=== PATIENT | female | born 1990 | race Caucasian/White ===

== ENCOUNTER 2019-02-13 02:23 | Emergency (ER) | payer OTHER, MEDICAID, SELFPAY ==
[2019-02-13 02:24] VITALS: BP 122/85; PULSE 72; RESP 16; TEMP 36.9; O2SAT 99; BMI 32.8
--- NOTE | 2019-02-13 02:36 | ED.VISSUMM ---
- ER Visit Summary Date of Service: 02/13/19 Chief Complaint: I want an STD check History of Present Illness: The patient is a 28 F who presents for an STD check. She complains of 1 week of vaginal discharge. She complains of mild pelvic cramping. She does have a prior history of STDs. Physical Examination: Afebrile vitals normal Moist mucous membranes Heart regular rate and rhythm Lungs clear Abdomen soft nontender nondistended Alert Test Results: Gonorrhea and Chlamydia pending Emergency Department Course and Treatment: Gonorrhea and Chlamydia were sent. Patient does not wish to wait for the results. We can contact her if they are positive. Treatment Plan: [] Disposition: Discharge Impression: STD screening This note was generated with [employer] dictation software. It may contain incorrect words, spelling, and punctuation that were not noted in review of the chart prior to signing ED Disposition - Plan for ED Patient: Referrals: Care Physician,No Primary [Primary Care Provider] -
--- NOTE | 2019-02-13 03:31 | ED.DEP ---
ED Disposition - Plan for ED Patient: Instructions: If You Think You Have an STD Referrals: Care Physician,No Primary [Primary Care Provider] -
[2019-02-13 03:35] VITALS: BP 120/62; PULSE 70; RESP 18; O2SAT 97
[2019-02-13 04:21] LABS: Chlamydia Trachomatis by PCR Negative (Negative); Neisserai gonorrhoeae by PCR Negative (Negative); Probe Check PASS; Sample Adequacy Control PASS; Specimen Processing Control PASS
== END 2019-02-13 03:35 | disposition home or self-care (01) ==
PROVIDERS: Emergency Provider Emergency Medicine
DX: Z11.3 Encounter for screening for infections with a predominantly sexual mode of transmission (principal); N89.8 Other specified noninflammatory disorders of vagina; Z72.0 Tobacco use
CPT/HCPCS: 87491; 87591; 99282; A4216

== ENCOUNTER 2019-02-15 04:24 | Emergency (ER) | payer MEDICAID, SELFPAY ==
[2019-02-15 04:25] VITALS: BP 117/73; PULSE 111; RESP 20; TEMP 36.9; O2SAT 98; BMI 32.3
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
--- NOTE | 2019-02-15 04:44 | CT_ITS ---
HISTORY: HEAD INJURY,ASSAULTED,LACERATION TO RT SIDE OF HEADETOH TECHNIQUE: Multiple axial images were obtained of the brain without intravenous contrast. A radiation dose optimization technique was used for this scan. COMPARISON: None FINDINGS: # of images incl. paperwork: 228 Mucoperiosteal thickening within the nasal cavity and ethmoid air cells. There is some induration of the fat above the orbits suggestive perhaps of mild contusion. Slightly more cranial than the right orbit, and posterior, there is some skin thickening and a scalp contusion and scalp laceration.. Brain volume is normal. The cerebellar tonsils extend into the foramen magnum but not out of the foramen magnum Jaramillo-white differentiation is preserved. No hydrocephalus. No acute ischemia. No acute intracranial hemorrhage. CT/Brain/Head without Contrast IMPRESSION: Right frontal parietal scalp laceration and contusion. Normal brain without intracranial hemorrhage perceived ASPECT 10. Individualized dose optimization techniques were used for this CT. at 0514 Reported and signed by: Jonel Haque MD Electronically Signed: Jonel Haque MD at 5:13 EDT Tel , Service support ,
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
--- NOTE | 2019-02-15 05:59 | ED.DEP ---
ED Disposition - Plan for ED Patient: Instructions: HEAD INJURY, No Wake-Up (Adult), LACERATION, Face (Suture or Tape), Alcohol Intoxication Referrals: Care Physician,No Primary [Primary Care Provider] -
[2019-02-15 06:12] VITALS: BP 112/71; PULSE 107; RESP 18; O2SAT 97
== END 2019-02-15 06:12 | disposition home or self-care (01) ==
PROVIDERS: Emergency Provider Emergency Medicine
DX: S01.81XA Laceration without foreign body of other part of head, initial encounter (principal); S01.112A Laceration without foreign body of left eyelid and periocular area, initial encounter; X58.XXXA Exposure to other specified factors, initial encounter; Y93.9 Activity, unspecified; Y92.9 Unspecified place or not applicable; Y99.9 Unspecified external cause status; F10.129 Alcohol abuse with intoxication, unspecified; Z79.899 Other long term (current) drug therapy
CPT/HCPCS: 12013; 70450; 99284

== ENCOUNTER 2019-12-29 17:30 | Emergency (ER) | payer SELFPAY ==
[2019-12-29 17:31] VITALS: BP 133/98; PULSE 108; RESP 16; TEMP 37.3; O2SAT 97; BMI 34.0
--- NOTE | 2019-12-29 18:07 | ED.VIS.GEN ---
History of Present Illness Chief Complaint: Abscess Informant: Patient Onset: Weeks - 1 week Context: Gradual Onset Current Severity: Mild Maximum Severity: Mild Narrative: Patient presents with multiple cutaneous abscesses. She first noted 1 on the lateral left hip approximate week ago. She was able to get this to drain. She has one on the left breast that is still indurated with no drainage. There is one just lateral to her left eye that she has been able to get to drain. There is also one on her right labia. Patient denies fever or chills. She states she was taking some old amoxicillin that she had left her previous illness. - Past Medical History (1) GERD (gastroesophageal reflux disease) Status: Chronic (2) Kidney stone Status: Chronic (3) Depression Status: Chronic Past Medical History - Allergies and Home Meds Allergies/Adverse Reactions: Allergies No Known Allergies Allergy (Verified 12/29/19 17:33) Primary Care Physician: Care Physician,No Primary [Primary Care Provider] - Prior records reviewed: Yes Smoking Status: Current every day smoker Review of Systems General: Denies: Chills, Fever Eyes: Denies: Visual changes - bilaterally ENT: Denies: Bilateral ear pain Cardiovascular: Denies: Chest pain Respiratory: Denies: Dyspnea, Cough Gastrointestinal: Denies: Abdominal pain, Nausea, Vomiting, Diarrhea Genitourinary: Denies: Dysuria Skin: Reports: Abscess Neurological: Denies: Headache Hematologic: Denies: Easy bruising, Easy bleeding Allergy: Denies: Uticaria Physical Exam Vital Signs/Narrative: Vital Signs Temp Pulse Resp BP Pulse Ox 12/29/19 17:31 99.1 F 108 H 16 133/98 H 97 Inital Vital Signs reviewed: Yes General: Well nourished, Well developed Head: Normocephalic ENT: Moist mucous membranes Neck: Supple Cardiovascular: Regular rate, Regular rhythm Respiratory: No distress, CTA bilaterally Abdomen: Soft, Nontender Skin: - - Patient has a 2 x 3 cm abscess just lateral to the left eye. She has a 3 cm round superficial abscess to the left anterior breast. There is a drained healing abscess to the lateral left hip. There is a small, 1/2 cm abscess to the right labia. No surrounding cellulitis is noted on these lesions. Neurological: Alert, Oriented x3 Psychological: Normal affect Diagnostic/Tx/Re-eval - Medical Decision Making Patient was given Bactrim, Keflex, and naproxen. Let was applied to the abscess on the left side of her face. 18-gauge needle was able to be used to unroofed the scab that was present. Pus was drained. There is no remaining fluctuance at this time. Patient be treated with a course of Bactrim and Keflex. She was instructed on using warm compresses to the area to continue further drainage. ED Disposition - Plan for ED Patient: Disposition: Home or Assisted Living Diagnosis: Cutaneous abscess Instructions: ED Abscess Incision And Drainage Prescriptions: Smz/Tmp Ds [Bactrim Ds] 1 tab PO BID #20 tab Transmission Status: Pending to [facility] #30 Cephalexin [Keflex] 500 mg PO Q6 #40 cap Transmission Status: Pending to [facility] Referrals: Clint Robles MD [STAFF PHYSICIAN] - As Needed
[2019-12-29] MEDS: Smz/Tmp Ds Tablet 1 TABLET PO (18:10)
[2019-12-29] MEDS: Lidocaine/Epi/Tetracaine 50 ML 1 APPLIC TOPICAL (18:10)
[2019-12-29] MEDS: Cephalexin 250 MG Capsule 500 MG PO (18:10)
[2019-12-29] MEDS: Naproxen 500 MG Tablet PO (18:28)
[2019-12-29 19:36] VITALS: RESP 16
== END 2019-12-29 19:39 | disposition home or self-care (01) ==
LOC: ED 19:21
PROVIDERS: Emergency Provider Emergency Medicine
DX: L02.01 Cutaneous abscess of face (principal); N61.1 Abscess of the breast and nipple; L02.416 Cutaneous abscess of left lower limb; N76.4 Abscess of vulva; K21.9 Gastro-esophageal reflux disease without esophagitis; F32.9 Major depressive disorder, single episode, unspecified; F17.200 Nicotine dependence, unspecified, uncomplicated; Z87.442 Personal history of urinary calculi
CPT/HCPCS: 10060; 99283

== ENCOUNTER 2020-04-07 22:20 | Emergency (ER) | payer SELFPAY ==
[2020-04-07 22:21] VITALS: BP 108/66; PULSE 96; RESP 18; TEMP 35.5; O2SAT 99; BMI 28.3
[2020-04-07 23:56] LABS: Internal QC Validated? YES +Cl - CLEAR BKGD; Pregnancy, Urine Negative Negative
[2020-04-08] MEDS: Azithromycin 250 MG Tablet 1000 MG PO (00:02)
[2020-04-08] MEDS: metroNIDAZOLE 500 MG Tablet 2000 MG PO (00:02)
[2020-04-08] MEDS: Ceftriaxone 500 MG Vial 250 MG IM (00:02)
--- NOTE | 2020-04-08 00:18 | ED.VISSUMM ---
- ER Visit Summary Date of Service: 04/08/20 Chief Complaint: Panic attack History of Present Illness: The patient is a 29 F who goes to the counseling center. Approximately 30 minutes ago she had a panic attack that consisted of chest pain shortness of breath. States that is now resolved. She reports that she is had these multiple times in the past. She is only had them after she stopped using heroin. She reports she has not used heroin since March 31. She was on Vistaril and Zyprexa, but is not needed this for the past 2 years as she had been clean. Patient also reports she has vaginal discharge that began 3 weeks ago. Is a yellow, fishy odor and she is concerned that she may have trichomonas or bacterial vaginitis. She reports that she has bacterial vaginitis frequently. Physical Examination: Vitals: Stable. Afebrile. General: Well-nourished and well-developed. Head: Normocephalic atraumatic. Neck: Supple, no lymphadenopathy. No JVD. Nontender. Cardiovascular: Regular rate and rhythm. No murmurs. Respiratory: No respiratory distress. Clear to auscultation bilaterally. Abdominal: Soft, nontender, nondistended, normal bowel sounds. No guarding, rebound, or peritoneal signs. Back: Nontender. Extremities: Nontender, no edema. Skin: Normal color, no rash. Neurologic: Alert and oriented ?3. Cranial nerves II through XII are intact. Normal strength and sensation. Psych: Normal affect. Test Results: test was negative. Gonorrhea and Chlamydia are pending. Emergency Department Course and Treatment: Patient was treated with Vistaril for her anxiety. She was given Flagyl, Rocephin IM, Zithromax, and Zofran p.o. She is resting comfortably. Treatment Plan: Patient will be discharged with prescriptions for Vistaril, Zyprexa, and Zofran. Instructed to follow-up the counseling center soon as possible. She is for instructed to follow-[facility] with [facility] 3 to 5 days if not improving. Return to the emergency department for any worsening symptoms. Disposition: To home in improved and stable condition. Impression: 1. Anxiety. 2. Vaginal discharge. This note was generated with [employer] software. It may contain incorrect words, spelling, and punctuation that were not noted in review of the chart prior to signing ED Disposition - Plan for ED Patient: Disposition: Home or Assisted Living Instructions: ED Panic Attack Prescriptions: hydrOXYzine pamoate capsule [Vistaril] 50 mg PO TID PRN PRN #30 cap PRN Reason: Anxiety Prescription Printed Olanzapine [Zyprexa] 5 mg PO DAILY #30 tab Prescription Printed Referrals: Cesario Noble MD [STAFF PHYSICIAN] - 3-5 Days if not improving Counseling,Center [GROUP OF PHYSICIANS] - As soon as possible
[2020-04-08] MEDS: hydrOXYzine PAM 25 MG Capsule 50 MG PO (00:25)
[2020-04-08] MEDS: Ondansetron ODT 4 MG Tablet PO (00:27)
[2020-04-08 00:29] VITALS: BP 103/68; PULSE 88; RESP 16; O2SAT 96
[2020-04-08 01:33] LABS: Chlamydia Trachomatis by PCR Negative (Negative); Neisserai gonorrhoeae by PCR Negative (Negative); Probe Check PASS; Sample Adequacy Control PASS; Specimen Processing Control PASS
== END 2020-04-08 00:30 | disposition home or self-care (01) ==
LOC: ED 23:21
PROVIDERS: Emergency Provider Emergency Medicine
DX: F41.9 Anxiety disorder, unspecified (principal); N89.8 Other specified noninflammatory disorders of vagina; Z79.899 Other long term (current) drug therapy
CPT/HCPCS: 81025; 87491; 87591; 96372; 99285

== ENCOUNTER 2020-09-11 07:27 | Observation (INO) | payer SELFPAY ==
[2020-09-11 07:28] VITALS: BP 130/98; PULSE 68; RESP 15; TEMP 36.2; O2SAT 99; BMI 28.3
--- NOTE | 2020-09-11 07:41 | CT_ITS ---
STUDY: CT ABDOMEN AND PELVIS WITHOUT CONTRAST REASON FOR EXAM: Female, 30 years old. KIDNEY STONE, RT FLANK PAIN RADIATION DOSAGE (If Supplied By Facility): CTDIvol = ( 6.91 ) mGy, DLP = ( 310.75 ) mGycm TECHNIQUE: Transaxial images were obtained from the dome of the diaphragm to the symphysis pubis without oral contrast, and without intravenous contrast. Sagittal and coronal images were reconstructed. Individualized dose optimization techniques were used for this CT. COMPARISON: 05/08/2012 FINDINGS: The visualized lung bases are unremarkable. The visualized portions of the heart are within normal limits. Normal liver. There are multiple gallstones. Normal spleen. Normal pancreas. Normal bilateral adrenal glands. Normal right kidney. Normal left kidney. Normal visualized stomach. Normal small intestine. Normal colon. The appendix is visualized and appears normal. Normal abdominal aorta. Normal inferior vena cava. Normal retroperitoneum. Normal urinary bladder. Normal abdominal wall. Normal osseous structures. CT/Abdomen/Pelvis without Cont IMPRESSION: No acute abnormality. No renal or ureteral stone. Cholelithiasis. Electronically Signed: Joshua Valladares MD at 8:53 EST Tel , Service support ,
--- NOTE | 2020-09-11 07:44 | ED.VIS.GEN ---
History of Present Illness Chief Complaint: Flank Pain Informant: Patient Narrative: 30-year-old female presents for the evaluation of acute abdominal pain. Patient states that the symptoms began during the night. She describes it as a right lower abdominal pain rating to her back. She states that she had nausea this morning but thought it was due to her pain. She notes she has had a cough. She notes some diarrhea this morning. Her story changes from I had normal bowel movements now having diarrhea. Her story changes from right lower quadrant to generalized abdominal pain. The information she is providing is not reassuring that I am the being given the full story. She is presenting from assisted. She denies any fever. - Past Medical History (1) Depression Status: Chronic (2) GERD (gastroesophageal reflux disease) Status: Chronic (3) Kidney stone Status: Chronic Past Medical History - Allergies and Home Meds Allergies/Adverse Reactions: Allergies No Known Allergies Allergy (Verified 04/07/20 22:26) Primary Care Physician: Care Physician,No Primary [Primary Care Provider] - Surgical History: - - Left ovarian surgery Lives: - - In assisted Smoking Status: Current every day smoker Alcohol: Occasional Drugs: Heroin Review of Systems General: Denies: Chills, Fever, Sweats Eyes: Denies: Visual changes - bilaterally, Diplopia ENT: Denies: Rhinorrhea, Sore throat Cardiovascular: Denies: Chest pain, Palpitations Respiratory: Reports: Cough. Denies: Dyspnea, Dyspnea on exertion Gastrointestinal: Reports: Abdominal pain, Nausea, Diarrhea. Denies: Vomiting, Melena, Hematochezia Genitourinary: Denies: Dysuria, Hematuria, Frequency Musculoskeletal: Denies: Back pain, Extremity Pain Skin: Denies: Rash, Wounds Neurological: Denies: Headache, Weakness, Numbness Physical Exam Vital Signs/Narrative: Vital Signs Temp Pulse Resp BP Pulse Ox 09/11/20 07:28 97.2 F L 68 15 130/98 H 99 Inital Vital Signs reviewed: Yes General: Well nourished, Well developed, No Acute Distress Head: Normocephalic, Atraumatic Eyes: Perrl, EOMI ENT: Moist mucous membranes, No rhinorrhea Neck: Supple, Nontender Cardiovascular: Regular rate, Regular rhythm, No murmurs Respiratory: No distress, CTA bilaterally, Chest nontender Abdomen: Soft, Nondistended, Normal bowel sounds, Tender - Diffusely tender to palpation out of proportion to the examination. With light touch to the left side of the abdomen the patient arcs her back and rise pain. It is difficult to get an examination with her response., Guarding Back: Nontender, Normal Inspection Extremities: Nontender, No edema Skin: Normal color, No rash Neurological: Alert, Oriented x3, Cranial nerves II-XII grossly intact, Normal Strength, Normal Sensation Psychological: Normal affect, Normal Mood Diagnostic/Tx/Re-eval Laboratory Last Values WBC 8.4 K/mm3 (4.4-11.0) 09/11/20 08:07 RBC 5.28 M/mm3 (4.2-5.4) 09/11/20 08:07 Hgb 14.4 g/dL (12.0-15.0) 09/11/20 08:07 Hct 44.1 % (37-47) 09/11/20 08:07 MCV 83.5 fL (81-99) 09/11/20 08:07 MCH 27.3 pg (27.0-32.0) 09/11/20 08:07 MCHC 32.7 g/dL (32-36) 09/11/20 08:07 RDW Std Deviation 43.2 fl (35.1-43.9) 09/11/20 08:07 RDW Coeff of Kath 14.2 % (11.6-14.6) 09/11/20 08:07 Plt Count 248 K/mm3 (150-450) 09/11/20 08:07 MPV 10.2 fl (6.2-12.0) 09/11/20 08:07 Immature Gran % (Auto) 0.400 % (0.0-0.9) 09/11/20 08:07 Neut % (Auto) 82.5 % (47-70) H 09/11/20 08:07 Lymph % (Auto) 12.0 % (19-41) L 09/11/20 08:07 Lee % (Auto) 4.6 % (0-10) 09/11/20 08:07 Eos % (Auto) 0.1 % (0-5) 09/11/20 08:07 Baso % (Auto) 0.4 % (0-1) 09/11/20 08:07 Absolute Neuts (auto) 6.9 X10^3/uL (2.0-7.7) 09/11/20 08:07 Absolute Lymphs (auto) 1.00 X10^3/uL (0.83-4.51) 09/11/20 08:07 Nucleated RBC % 0 % (0-5) 09/11/20 08:07 Sodium 139 mmol/L (136-145) 09/11/20 08:07 Potassium 4.1 mmol/L (3.5-5.1) 09/11/20 08:07 Chloride 105 mmol/L (98-107) 09/11/20 08:07 Carbon Dioxide 27.0 mmol/L (21.0-32.0) 09/11/20 08:07 Anion Gap 7 (5-15) 09/11/20 08:07 BUN 8 mg/dL (7-18) 09/11/20 08:07 Creatinine 0.76 mg/dL (0.55-1.02) 09/11/20 08:07 Estim Creat Clear Calc 82.42 ml/min 09/11/20 08:07 Est GFR (MDRD) Af Amer 115 mL/min (>60) 09/11/20 08:07 Est GFR (MDRD) Non-Af 95 mL/min (>60) 09/11/20 08:07 BUN/Creatinine Ratio 10.5 RATIO (10-20) 09/11/20 08:07 Glucose 106 mg/dL (74-106) 09/11/20 08:07 Calcium 9.3 mg/dL (8.5-10.1) 09/11/20 08:07 Total Bilirubin 0.90 mg/dL (0.20-1.00) 09/11/20 08:07 Direct Bilirubin 0.45 mg/dL (0.00-0.30) H 09/11/20 08:07 AST 233 U/L (15-37) H 09/11/20 08:07 ALT 177 U/L (13-56) H 09/11/20 08:07 Alkaline Phosphatase 78 U/L (45-117) 09/11/20 08:07 Total Protein 8.4 g/dL (6.4-8.2) H 09/11/20 08:07 Albumin 4.2 g/dL (3.2-5.0) 09/11/20 08:07 Globulin 4.2 g/dL (2.2-4.2) 09/11/20 08:07 Lipase 4693 U/L (73-393) H 09/11/20 08:07 Serum , Qual NEGATIVE Negative 09/11/20 08:07 Urine Color Yellow (Yellow) 09/11/20 07:51 Urine Clarity Clear (Clear) 09/11/20 07:51 Urine pH 7.0 (5.0 - 8.0) 09/11/20 07:51 Ur Specific [place] 1.020 (1.002-1.030) 09/11/20 07:51 Urine Protein 15 mg/dl (Negative) H 09/11/20 07:51 Urine Glucose (UA) Normal mg/dl (Normal) 09/11/20 07:51 Urine Ketones Negative mg/dl (Negative) 09/11/20 07:51 Urine Occult Blood Negative /ul (Negative) 09/11/20 07:51 Urine Nitrite Negative (Negative) 09/11/20 07:51 Urine Bilirubin Negative mg/dL (Negative) 09/11/20 07:51 Urine Urobilinogen 1 mg/dl (Normal) H 09/11/20 07:51 Ur Leukocyte Esterase 25 /ul (Negative) H 09/11/20 07:51 Urine RBC 0 SEEN /hpf (0-5) 09/11/20 07:51 Urine WBC 0-5 SEEN /hpf (0-5) 09/11/20 07:51 Ur Squamous Epith Cells 5-10 SEEN /hpf (5-10) 09/11/20 07:51 Amorphous Sediment 2+ 09/11/20 07:51 Urine Bacteria 0 SEEN /hpf (None Seen) 09/11/20 07:51 Urine Mucus 0 SEEN /hpf (<or=2+) 09/11/20 07:51 Clinical Impression(s) from Imaging Studies Abdomen/Pelvis CT 09/11/20 07:41 IMPRESSION: No acute abnormality. No renal or ureteral stone. Cholelithiasis. Electronically Signed: Joshua Valladares MD at 8:53 EST Tel , Service support , - Medical Decision Making Patient is Covid negative. IV was established and the patient received a dose of Toradol and Zofran. Basic blood work showed slight elevation in the patient's transaminases. Lipase is significantly elevated at just over 4693. A CT of the abdomen pelvis without contrast was obtained because of the patient's reported right lower quadrant abdominal pain with radiation to the back and her history of kidney stones. This did not demonstrated any ureterolithiasis but did note a distended gallbladder with cholelithiasis. I spoke with our on-call surgeon Dr. Cuevas. He will be admitting the patient. The patient has a history of heroin abuse nothing recent. She does not wish any narcotics. ED Disposition - Plan for ED Patient: Disposition: Acute Care [facility] Diagnosis: Acute gallstone pancreatitis, Acute abdominal pain Referrals: Care Physician,No Primary [Primary Care Provider] -
[2020-09-11 07:58] LABS: Bacteria 0 SEEN /hpf (None Seen); Mucous, Urine 0 SEEN /hpf (<or=2+); Red Blood Cells-Urine 0 SEEN /hpf (0-5)
[2020-09-11 08:03] LABS: Glucose, Dipstick Normal (Normal); Ketone-Dipstick Negative (Negative); Leukocyte Esterase-Dipstick 25 /ul (Negative); Nitrite-Dipstick Negative (Negative); Occult Blood-Urine Negative /ul (Negative); Protein-Dipstick 15 mg/dl (Negative); Urine Bilirubin Dipstick Negative (Negative); Urine Urobilinogen 1 mg/dl (Normal)
[2020-09-11 08:08] LABS: Color, Urine Yellow (Yellow); Urine Clarity Clear (Clear)
[2020-09-11] MEDS: Ketorolac 30 MG/ML Syringe IV (08:12)
[2020-09-11] MEDS: Ondansetron 4 MG/2 ML Vial IV ×3 (08:12→20:34)
[2020-09-11 08:16] LABS: Absolute Neutrophil Count 6.9 X10^3/uL (2.0-7.7); Basophil# 0.03 X10^3/uL; Basophil% 0.4 % (0-1); Eosinophil# 0.01 X10^3/uL; Eosinophils% 0.1 % (0-5); Hematocrit 44.1 % (37-47); Hemoglobin 14.4 g/dL (12.0-15.0); Mean Corp Hgb Conc 32.7 g/dL (32-36); Mean Corpuscular Hgb 27.3 pg (27.0-32.0); Mean Corpuscular Volume 83.5 fL (81-99); Mean Platelet Vol. 10.2 fl (6.2-12.0); Monocyte# 0.38 X10^3/uL; Monocyte% 4.6 % (0-10); NRBC Flagged by Analyzer 0 % (0-5); Neutrophil % 82.5 % (47-70); Platelet Count 248 K/mm3 (150-450); RBC Distribution Width CV 14.2 % (11.6-14.6); RBC Distribution Width SD 43.2 fl (35.1-43.9); Red Blood Count 5.28 M/mm3 (4.2-5.4); White Blood Count 8.4 K/mm3 (4.4-11.0)
[2020-09-11 08:25] LABS: Internal QC Validated? YES +Cl - CLEAR BKGD; Pregnancy, Serum, hCG Quali. NEGATIVE Negative
[2020-09-11 08:28] LABS: Amorphous Sediment 2+; Squamous Epithelial Cells - UA 5-10 SEEN /hpf (5-10); White Blood Cells 0-5 SEEN /hpf (0-5)
[2020-09-11 08:36] LABS: AST(SGOT) 233 U/L (15-37); Alanine Aminotransfer ALT/SGPT 177 U/L (13-56); Albumin, Serum 4.2 g/dL (3.2-5.0); Alkaline Phosphatase 78 U/L (45-117); Anion Gap 7 (5-15); BUN 8 mg/dL (7-18); BUN/Creat Ratio 10.5 RATIO (10-20); Bilirubin, Direct 0.45 mg/dL (0.00-0.30); Calcium,Total 9.3 mg/dL (8.5-10.1); Chloride 105 mmol/L (98-107); Creatinine, Serum 0.76 mg/dL (0.55-1.02); EST Glomerular Filtration Rate 95 mL/min (>60); Est Glom Filt Rate - Afr Amer 115 mL/min (>60); Estimated Creatinine Clearance 82.42 ml/min; Globulin 4.2 g/dL (2.2-4.2); Glucose 106 mg/dL (74-106); Lipase 4693 U/L (73-393); Potassium 4.1 mmol/L (3.5-5.1); Protein, Total 8.4 g/dL (6.4-8.2); Sodium Level 139 mmol/L (136-145)
[2020-09-11] MEDS: 0.9% Normal Saline 1,000 ML 999 ML IV (09:17)
[2020-09-11 09:46] VITALS: BP 133/79; PULSE 83; RESP 16; TEMP 36.8; O2SAT 99
[2020-09-11 09:55] VITALS: BMI 28.7
[2020-09-11 09:56] VITALS: BP 106/69; PULSE 74; RESP 16; TEMP 37.7; O2SAT 100
--- NOTE | 2020-09-11 10:03 | HP.PCM_ITS ---
Problem List (1) Acute gallstone pancreatitis Status: Acute History of Present Illness Date of Admission: 09/11/20 Chief Complaint: Abdominal pain The patient is a 30 year old F with a history of hepatitis C presented with abdominal pain and nausea and vomiting. She does not have any fevers or chills and this is never happened to her before. She is having abdominal pain that radiates to the back. She says it started in her lower abdomen now is in her upper abdomen. She is also having some diarrhea. Past Medical History Past Medical History (Chronic Problems): Chronic Problems GERD (gastroesophageal reflux disease) (Chronic) Kidney stone (Chronic) Depression (Chronic) Medical History: Medical History (Last Updated 09/11/20 @ 10:[address] Michael Cuevas MD) Hepatitis C B19.20 Allergies No Known Allergies Allergy (Verified 09/11/20 09:20) Home Medications: Ambulatory Orders Medication Instructions Recorded NK 09/11/20 Surgical History: - - Left ovarian surgery Lives: - - In retirement Smoking Status: Current every day smoker Alcohol: Occasional Drugs: Heroin - *Family History Maternal History Items: No pertinent history Review of Systems Constitutional: Denies: Anorexia, Fever HEENT: Denies: Difficulty Swallowing Cardiovascular: Denies: Chest Pain Respiratory: Denies: Cough, Shortness of Breath, Shortness of breath at rest Gastrointestinal: Reports: Abdominal Pain, Nausea, Vomiting Genitourinary: Denies: Dysuria Musculoskeletal: Denies: Muscle pain Skin: Denies: Jaundice Neurological: Denies: Balance problems Hematologic/ Lymphatic: Denies: Anemia VTE Information - Inpt Only VTE Present on Admission: No VTE Mechan Device Prophylaxis: SCD's Patient Problems: Active and Suspected Problems Acute gallstone pancreatitis (Acute) Acute abdominal pain (Acute) - Physical Exam Vitals/I&O's: Vital Signs Temp Pulse Resp BP Pulse Ox 99.9 F H 74 16 106/69 100 09/11/20 09:56 09/11/20 09:56 09/11/20 09:56 09/11/20 09:56 09/11/20 09:56 Oxygen Delivery Method Room Air Weight: 152 lb Body Mass Index (BMI) 28.7 Intake and Output for Last 24 Hours 09/09/20 09/10/20 09/11/20 23:59 23:59 23:59 Intake Total 632.7 / 632.7 Balance 632.7 / 632.7 General: Alert, Oriented x3 Neck: No JVD Lungs: Normal air movement Cardiovascular: Regular rate, Regular Rhythm Abdomen: Soft, Non-Distended, Tender - Diffusely with no rebound or guarding Extremities: No clubbing Skin: No rashes Musculoskeletal: No Muscle Wasting Lymphatic: No Cervical, Supraclavicular, or Inguinal Adenopathy Neurological: Cranial nerves II-XII grossly intact Psych/Mental Status: Normal Affect Microbiology Past 72 Hours 09/11/20 07:45 Mucosa - Nose SARS-CoV-2 Antigen (Rapid) - Final Laboratory Results 09/11/20 07:51: Urine Color Yellow, Urine Clarity Clear, Urine pH 7.0, Ur Specific [place] 1.020, Urine Protein 15 H, Urine Glucose (UA) Normal, Urine Ketones Negative, Urine Occult Blood Negative, Urine Nitrite Negative, Urine Bilirubin Negative, Urine Urobilinogen 1 H, Ur Leukocyte Esterase 25 H, Urine RBC 0 SEEN, Urine WBC 0-5 SEEN, Ur Squamous Epith Cells 5-10 SEEN, Amorphous Sediment 2+, Urine Bacteria 0 SEEN, Urine Mucus 0 SEEN 09/11/20 08:07: WBC 8.4, RBC 5.28, Hgb 14.4, Hct 44.1, MCV 83.5, MCH 27.3, MCHC 32.7, RDW Std Deviation 43.2, RDW Coeff of Kath 14.2, Plt Count 248, MPV 10.2, Immature Gran % (Auto) 0.400, Neut % (Auto) 82.5 H, Lymph % (Auto) 12.0 L, [place] % (Auto) 4.6, Eos % (Auto) 0.1, Baso % (Auto) 0.4, Absolute Neuts (auto) 6.9, Absolute Lymphs (auto) 1.00, Nucleated RBC % 0 09/11/20 08:07: Sodium 139, Potassium 4.1, Chloride 105, Carbon Dioxide 27.0, Anion Gap 7, BUN 8, Creatinine 0.76, Estim Creat Clear Calc 82.42, Est GFR (MDRD) Af Amer 115, Est GFR (MDRD) Non-Af 95, BUN/Creatinine Ratio 10.5, Glucose 106, Calcium 9.3, Total Bilirubin 0.90, Direct Bilirubin 0.45 H, AST 233 H, ALT 177 H, Alkaline Phosphatase 78, Total Protein 8.4 H, Albumin 4.2, Globulin 4.2, Lipase 4693 H 09/11/20 08:07: Serum , Qual NEGATIVE Clinical Impression(s) from Imaging Studies Abdomen/Pelvis CT 09/11/20 07:41 IMPRESSION: No acute abnormality. No renal or ureteral stone. Cholelithiasis. Electronically Signed: Joshua Valladares MD at 8:53 EST Tel , Service support , Current Medications Acetaminophen (Acetaminophen 325 Mg Tablet) 650 mg PO Q4H PRN PRN PRN Reason: Pain 1-10 or Fever Hydromorphone HCl (Hydromorphone 1 Mg/Ml Syringe) 1 mg IV Q2H PRN PRN PRN Reason: Pain Score 4-10 Sodium Chloride () 1,000 mls @ 999 mls/hr IV .Q1H1M ONE Stop: 09/11/20 10:12 Last Infusion: 09/11/20 09:55 Dose: Infused Documented by: Sodium Chloride () 1,000 mls @ 125 mls/hr IV .Q8H MARCELLO Sodium Chloride () 250 mls @ 15 mls/hr IV .[id number] PRN PRN Reason: Saline Flush Ketorolac Tromethamine (Ketorolac 15 Mg/Ml Vial) 15 mg IV Q8H PRN PRN PRN Reason: Pain Score 4-10 Stop: 09/13/20 09:16 Ondansetron HCl (Ondansetron 4 Mg/2 Ml Vial) 4 mg IV Q6H PRN PRN PRN Reason: NAUSEA Sodium Chloride (0.9% Saline Lock 10 Ml Syringe) 10 - 40 ml IV UD PRN PRN Reason: SALINE FLUSH Assessment/Plan All Active Problems Acute gallstone pancreatitis (Acute) Acute abdominal pain (Acute) Nausea and vomiting in (Acute) 30-year-old female with gallstone pancreatitis 1. Patient has CT scan which showed cholelithiasis and she has an elevated lipase as well as elevated LFTs. This is consistent with her pain in her upper abdominal area that radiates to the back as gallstone pancreatitis. 2. I have admitted the patient and I will start her on IV fluids and keep her n .p.o. I will recheck LFTs in the morning and decide about course of treatment. If her LFTs continue to trend upward I would recommend ERCP tomorrow. If her LFT's and lipase are decreasing and she is feeling better I will perform a laparoscopic cholecystectomy to prevent this from happening again in the future. I discussed both treatment options with her and she is in agreement with the treatment plan. I will perform cholangiograms during the procedure. Michael Cuevas MD Pager: [facility] [address] [place] [address] [address] [place] [address] Office:
[2020-09-11 11:15] VITALS: PULSE 100
[2020-09-11] MEDS: 0.9% Normal Saline 1,000 ML 125 ML IV ×2 (11:15→19:25)
[2020-09-11] MEDS: HYDROmorphone 1 MG/ML Syringe IV ×3 (11:18→20:35)
[2020-09-11] MEDS: 0.9% Saline Lock 10 ML Syringe IV ×3 (11:18→19:25)
[2020-09-11] MEDS: Ketorolac 15 MG/ML Vial IV (16:20)
[2020-09-11 16:25] VITALS: BP 119/76; PULSE 60; RESP 16; TEMP 37.2; O2SAT 97
--- NOTE | 2020-09-11 17:11 | PCS.PANDOC ---
PANDEMIC DOCUMENTATION INITIATED: Date: 09/11/2020 Time: 50
[2020-09-11 20:16] VITALS: BP 104/68; PULSE 76; RESP 16; TEMP 36.6; O2SAT 99
[2020-09-12] VITALS (12 sets, daily range): BP systolic 96–131; BP diastolic 57–89; PULSE 64–101; RESP 15–18; TEMP 36.6–37.1; O2SAT 96–100; BMI 28.7
--- NOTE | 2020-09-12 | GALL_PTH ---
PATIENT: ROSEMARY LANDAVERDE LOC: MS3 U#:[id number] AGE/SX: 30/F ROOM: MS311 RE09/11/[address]: Dr. Michael Cuevas MD : 1990 BED: 1 DIS: 09/13/2020 SPEC #: [id number] RECD: 09/13/20 07:28 STATUS: SERGIO ROSEMARY #: [id number] YUMIKO: 09/12/20 00:[address]: Michael Cuevas DEPT: SURGICAL PATHOLOGY RECD BY: Ken Vee ENTERED: 09/13/20 07:52 SP TYPE: LYDIA CHIANG DR: No Primary Care Phys Tissues: Gallbladder, NOS Procedures: Surgery Specimen Level III HEADER OPERATION: Laparoscopic cholecystectomy with IOC PRE-OP DIAGNOSIS: Acute gallstone pancreatitis, acute abdominal pain TISSUE SUBMITTED: Gallbladder MICROSCOPIC DIAGNOSIS Gallbladder, cholecystectomy: Chronic cholecystitis and cholelithiasis. Benign pericystic lymph node. AM:kan 09/14/2020 MICROSCOPIC DESCRIPTION Slides are reviewed. GROSS DESCRIPTION Received is one container labeled with the patient's name and designated gallbladder. The specimen consists of a gallbladder measuring 9 cm in length and 3.5 cm in diameter. The external surface is pink-pineda, smooth and glistening for the most part. Focally it is granular, hemorrhagic and contains cautery artifact. The gallbladder contains green-yellow mucoid bile and multiple, mulberry, pineda-light yellow to green stones and stone fragments measuring in aggregate 3 x 2 x 0.5 cm and 0.1 to 0.3 cm in greatest dimension. The mucosa is bile-stained and without any mass lesions. The gallbladder wall measures up to 0.3 cm in thickness. [employer] Tech sections from the gallbladder and the cystic duct are submitted in one cassette. / SJ:kan 09/13/20 TC:3 CPT: 02744
[2020-09-12 00:31] LABS: Amphetamine Urine VISTA NEGATIVE (<1000 ng/mL); Barbiturate Urine VISTA NEGATIVE (< 200 ng/mL); Benzodiazepine Urine VISTA NEGATIVE (< 200 ng/mL); Cocaine Urine VISTA NEGATIVE (< 300 ng/mL); Ecstacy Urine VISTA NEGATIVE (< 500 ng/mL); Methadone Urine VISTA NEGATIVE (< 300 ng/mL); PCP Urine VISTA NEGATIVE (< 25 ng/mL); THC Urine VISTA NEGATIVE (< 50 ng/mL); Vista UDS pH Range 6
[2020-09-12] MEDS: Ketorolac 15 MG/ML Vial IV ×3 (00:54→21:34)
[2020-09-12] MEDS: HYDROmorphone 1 MG/ML Syringe IV ×5 (02:40→17:41)
[2020-09-12] MEDS: Ondansetron 4 MG/2 ML Vial IV ×2 (02:40→08:57)
--- NOTE | 2020-09-12 05:00 | EKG12_ITS ---
Test Reason : PRE-OP Blood Pressure : / mmHG Vent. Rate : 071 BPM Atrial Rate : 071 BPM P-R Int : 158 ms QRS Dur : 088 ms QT Int : 414 ms P-R-T Axes : 061 047 053 degrees QTc Int : 449 ms Normal sinus rhythm with sinus arrhythmia Nonspecific T wave abnormality Abnormal ECG When compared with ECG of 20-AUG-2011 20:04, Nonspecific T wave abnormality now evident in Lateral leads Confirmed by IRAM PEREZ, LUIS MANUEL ([id number]), editor managing director RAISA WEINSTEIN ([id number]) on 09/14/2020 11:23:16 AM Referred By: DR BORGES Confirmed By:LUIS MANUEL WALDEN MD
[2020-09-12 05:15] LABS: Absolute Lymphocyte Count 1.93 X10^3/uL (0.83-4.51); Absolute Neutrophil Count 2.7 X10^3/uL (2.0-7.7); Basophil# 0.03 X10^3/uL; Basophil% 0.6 % (0-1); Eosinophil# 0.04 X10^3/uL; Eosinophils% 0.8 % (0-5); Hematocrit 34.3 % (37-47); Hemoglobin 10.9 g/dL (12.0-15.0); Lymphocyte # 1.93 X10^3/ul (4.0); Lymphocyte % 38.9 % (19-41); Mean Corp Hgb Conc 31.8 g/dL (32-36); Mean Corpuscular Hgb 26.9 pg (27.0-32.0); Mean Corpuscular Volume 84.7 fL (81-99); Mean Platelet Vol. 10.6 fl (6.2-12.0); NRBC Flagged by Analyzer 0 % (0-5); Neutrophil # 2.65 X10^3/uL (2.7-7.7); Neutrophil % 53.5 % (47-70); Platelet Count 167 K/mm3 (150-450); RBC Distribution Width CV 14.5 % (11.6-14.6); RBC Distribution Width SD 44.8 fl (35.1-43.9); Red Blood Count 4.05 M/mm3 (4.2-5.4)
[2020-09-12 05:38] LABS: ALB/GLOB Ratio 0.9 RATIO (0.9-2.4); AST(SGOT) 157 U/L (15-37); Alanine Aminotransfer ALT/SGPT 235 U/L (13-56); Albumin, Serum 3.1 g/dL (3.2-5.0); Alkaline Phosphatase 65 U/L (45-117); Anion Gap 7 (5-15); BUN 11 mg/dL (7-18); Chloride 109 mmol/L (98-107); Creatinine, Serum 0.69 mg/dL (0.55-1.02); EST Glomerular Filtration Rate 107 mL/min (>60); Est Glom Filt Rate - Afr Amer 129 mL/min (>60); Estimated Creatinine Clearance 90.78 ml/min; Globulin 3.3 g/dL (2.2-4.2); Glucose 72 mg/dL (74-106); Lipase 439 U/L (73-393); Potassium 3.4 mmol/L (3.5-5.1); Protein, Total 6.4 g/dL (6.4-8.2); Sodium Level 139 mmol/L (136-145)
[2020-09-12] MEDS: 0.9% Normal Saline 1,000 ML 125 ML IV ×2 (07:17→17:45)
[2020-09-12] MEDS: Potassium Chloride 10mEq/100mL 10 MEQ/100 ML IV.SOLN. 100 MEQ IV BOLUS ×4 (08:46→12:50)
--- NOTE | 2020-09-12 08:54 | PCM.PN.SRG ---
Patient Problems: Active and Suspected Problems (Last Updated 09/11/20 @ 10:[address] Michael Cuevas MD) Acute gallstone pancreatitis (Acute) Acute abdominal pain (Acute) Subjective: Patient had improvement of pain overnight. No nausea or vomiting overnight. - Physical Exam Vitals/I&O's: Vital Signs Temp Pulse Resp BP Pulse Ox 98.7 F 75 16 96/58 L 99 09/12/20 08:51 09/12/20 08:51 09/12/20 08:51 09/12/20 08:51 09/12/20 08:51 Oxygen Delivery Method Room Air Weight: 152 lb Body Mass Index (BMI) 28.7 Intake and Output for Last 24 Hours 09/10/20 09/11/20 09/12/20 23:59 23:59 23:59 Intake Total 2141.03 / 2141.03 1000 / 1000 Output Total 350 / 350 Balance 1791.03 / 1791.03 1000 / 1000 General: Alert, Oriented x3 Neck: No JVD Lungs: Normal air movement Cardiovascular: Regular rate, Regular Rhythm Abdomen: Soft, Non-Distended, Tender - Mild epigastric tenderness Microbiology Past 72 Hours 09/11/20 07:45 Mucosa - Nose SARS-CoV-2 Antigen (Rapid) - Final Laboratory Results 09/11/20 07:51: Urine Opiates Screen NEGATIVE, Urine Methadone Screen NEGATIVE, Ur Barbiturates Screen NEGATIVE, Ur Phencyclidine Scrn NEGATIVE, Ur Amphetamines Screen NEGATIVE, U Methamphetamin-MDMA NEGATIVE, U Benzodiazepines Scrn NEGATIVE, Urine Cocaine Screen NEGATIVE, U Cannabinoids Screen NEGATIVE, Ur Drug Screen Comment 09/12/20 04:45: WBC 5.0, RBC 4.05 L, Hgb 10.9 L, Hct 34.3 L, MCV 84.7, MCH 26.9 L, MCHC 31.8 L, RDW Std Deviation 44.8 H, RDW Coeff of Kath 14.5, Plt Count 167, MPV 10.6, Immature Gran % (Auto) 0.200, Neut % (Auto) 53.5, Lymph % (Auto) 38.9, [place] % (Auto) 6.0, Eos % (Auto) 0.8, Baso % (Auto) 0.6, Absolute Neuts (auto) 2.7, Absolute Lymphs (auto) 1.93, Nucleated RBC % 0 09/12/20 04:45: Sodium 139, Potassium 3.4 L, Chloride 109 H, Carbon Dioxide 23.0, Anion Gap 7, BUN 11, Creatinine 0.69, Estim Creat Clear Calc 90.78, Est GFR (MDRD) Af Amer 129, Est GFR (MDRD) Non-Af 107, BUN/Creatinine Ratio 16.0, Glucose 72 L, Calcium 8.0 L, Total Bilirubin 0.60, AST 157 H, ALT 235 H, Alkaline Phosphatase 65, Total Protein 6.4, Albumin 3.1 L, Globulin 3.3, Albumin/Globulin Ratio 0.9, Lipase 439 H Current Medications Acetaminophen (Acetaminophen 325 Mg Tablet) 650 mg PO Q4H PRN PRN PRN Reason: Pain 1-10 or Fever Hydromorphone HCl (Hydromorphone 1 Mg/Ml Syringe) 1 mg IV Q2H PRN PRN PRN Reason: Pain Score 4-10 Last Admin: 09/12/20 07:33 Dose: 1 mg Documented by: Sodium Chloride () 1,000 mls @ 125 mls/hr IV .Q8H MARCELLO Last Admin: 09/12/20 07:17 Dose: 125 mls/hr Documented by: Sodium Chloride () 250 mls @ 15 mls/hr IV .[id number] PRN PRN Reason: Saline Flush Potassium Chloride () 10 meq in 100 mls @ 100 mls/hr IV BOLUS Q1H MARCELLO Stop: 09/12/20 10:44 Last Admin: 09/12/20 08:46 Dose: 100 mls/hr Documented by: Ketorolac Tromethamine (Ketorolac 15 Mg/Ml Vial) 15 mg IV Q8H PRN PRN PRN Reason: Pain Score 4-10 Stop: 09/13/20 09:16 Last Admin: 09/12/20 00:54 Dose: 15 mg Documented by: Ondansetron HCl (Ondansetron 4 Mg/2 Ml Vial) 4 mg IV Q6H PRN PRN PRN Reason: NAUSEA Last Admin: 09/12/20 02:40 Dose: 4 mg Documented by: Sodium Chloride (0.9% Saline Lock 10 Ml Syringe) 10 - 40 ml IV UD PRN PRN Reason: SALINE FLUSH Last Admin: 09/11/20 19:25 Dose: 20 ml Documented by: Medical Necessity - Tobacco Use Smoking Status: Current every day smoker Tobacco Use: Cigarettes Assessment/Plan All Active Problems (Last Updated 09/11/20 @ 10:[address] Michael Cuevas MD) Nausea and vomiting in (Acute) Acute gallstone pancreatitis (Acute) Acute abdominal pain (Acute) 30-year-old female with gallstone pancreatitis 1. The patient's liver enzymes did show improvement overnight. I will plan for laparoscopic cholecystectomy with cholangiogram today. Her pancreatitis seems to be resolving as her pain is improved and her lipase is decreased. I discussed this with her and she is in agreement with the treatment plan. 2. I discussed the procedure in detail with the patient. I discussed the risks, benefits, and alternatives of the procedure. I discussed the risks including but not limited to bleeding, infection, injury to surrounding organs such as the liver, bile duct, bowels. I did discuss the possibility of having to convert to an open procedure as well as the possibility that if any injuries occurred this may necessitate further surgery at a tertiary care center. Michael Cuevas MD Pager: [facility] [address] [place] [address], [address] [place] [address] Office:
[2020-09-12] MEDS: 0.9% Saline Lock 10 ML Syringe IV ×5 (08:57→21:34)
--- NOTE | 2020-09-12 10:46 | CASEMGMT ---
Addendum entered by Laurie Cee 09/12/20 11:57: SW was provided HCAP application and Medicaid Application. SW sent HCAP application to [employer], SW faxed Medicaid Application to [employer]. SW provided pt with original Medicaid Application. Original Note: Social Work Note Pt is listed as self-pay. SW in to speak with pt. SW introduced self and role at [facility]. Pt is alert and orientated x3. Pt confirms she currently has no insurance. Pt states she used to have [employer] insurance but it was over a year ago and she got a job and then made too much for Medicaid. SW provided pt with Self-pay resources including HCAP application, Medicaid Application, [facility] information, [employer], [employer] [facility], and RX assistance programs. Pt thanked this worker, denied additional needs or concerns at this time. Laurie Cee HEARING CARE PRACTITIONER, ADOBE CQ DEVELOPER
--- NOTE | 2020-09-12 14:40 | RAD_ITS ---
STUDY: INTRAOPERATIVE CHOLANGIOGRAM. REASON FOR EXAM: Female, 30 years old. lap teresita with IOC, 9 images FLUOROSCOPY TIME (if supplied): ( 150 seconds ) minutes/seconds TECHNIQUE: An intraoperative carotid was performed by the surgeon. Imaging was submitted. COMPARISON: None. FINDINGS: Mild dilatation of the common bile duct. There is free flow of contrast into the duodenum. RAD/Cholangiogram/ O R,Initial IMPRESSION: Mildly dilated common bile duct. Electronically Signed: Magdaleno Rowe MD at 15:54 EST , Service support ,
[2020-09-12] MEDS: Cefotetan 2 GM in 0.9% NS 100 ML IV (14:48)
[2020-09-12] MEDS: Lactated Ringers 1,000 ML 100 ML IV (15:15)
[2020-09-12] MEDS: Bupiv/Epi 0.25% 30 ML Vial (15:43)
--- NOTE | 2020-09-12 16:05 | OP.PCM_ITS ---
Problem List (1) Acute gallstone pancreatitis Status: Acute Report of Operation Date of Procedure: 09/12/20 Pre-Operative Diagnosis: Gallstone pancreatitis Post-Operative Diagnosis: Gallstone pancreatitis. Choledocholithiasis Surgery/Procedure Performed:: Laparoscopic cholecystectomy with cholangiogram Specimen's removed: Gallbladder and contents Description of Procedure: After obtaining informed consent patient was brought back to the operating room. General anesthesia was induced. The abdomen was prepped and draped in usual sterile fashion. A small midline incision was made superior to the umbilicus and deepened to the level of fascia. The fascia was elevated and incised. Next the peritoneum was elevated and incised in the same fashion. Finger sweep was performed and the [place] trocar was placed into the abdomen. The balloon was inflated. The abdomen was inflated to 15 mmHg. Next a camera was introduced into the abdomen and the abdomen was inspected. Next under direct visualization three 5-mm ports were placed one subxiphoid and 2 subcostal. Next the gallbladder was elevated and retracted toward the right shoulder. The peritoneum was stripped from the gallbladder. The infundibulum was located and retracted laterally. Next the triangle of Calot was dissected and the cystic duct and cystic artery were identified. Cholangiograms were performed. The Shaw clamp was used to clamp across the infundibulum and the catheter needle was inserted into the gallbladder. Under fluoroscopy contrast was instilled into the gallbladder and the common duct, cystic duct as well as proximal hepatic ducts were identified. There was good filling of the duodenum. There were filling defects noted in the common bile duct. Glucagon was administered and after forceful flushing the leading filling defect was flushed into the small bowel but there were 2 other small defects that were not able to be flushed. There was good flow into the duodenum after flushing the first stone through. I am unable to guarantee that the distal common bile duct does not have any further filling defects. The clamp was removed as well as the needle and the infundibulum was grasped once more. Three hemolock clips were placed across the cystic duct. The cystic duct was then divided leaving 2 clips on the stump. The cystic artery was clipped and divided in the same fashion. The hook cautery was then used to take the gallbladder off of the gallbladder bed. Hemostasis was obtained. Gallbladder fossa was irrigated and no active bleeding or bile leakage was noted. Next the camera was introduced in the subxiphoid port. An Endopouch bag was placed through the umbilical port and the gallbladder was placed into it. The gallbladder was then removed through the umbilical incision. The camera was then reinserted through the umbilical port. The gallbladder fossa was inspected once more and noted to be hemostatic with no leaking bile. The abdomen was suctioned dry. The 5 mm ports were removed under direct visualization. The umbilical port was then removed and the air was removed from the abdomen. Next using an 0 Vicryl suture the umbilical fascia was closed in a [id number] fashion. The umbilical port site was irrigated local anesthetic was administered to all the incisions. All the incisions were closed with interrupted subcuticular 4-0 Monocryl sutures followed by Steri- Strips and dressings. The patient was awoken and taken to PACU in stable condition. Plan for ERCP tomorrow. - Admit VTE Documentation VTE Mechan Device Prophylaxis: SCD's
--- NOTE | 2020-09-12 16:07 | PCM.PN.BLA ---
Progress Note The patient had a stone in the distal common bile duct which was flushed through there were 2 other filling defects that appeared in the distal common bile duct they were unable to be cleared. I recommend ERCP tomorrow. I will start her on clears tonight and n.p.o. after 9 AM for ERCP tomorrow. STROKE Vital Signs/Narrative: Vital Signs Temp Pulse Resp BP Pulse Ox 09/12/20 12:15 98.0 F 77 16 112/57 L 96
--- NOTE | 2020-09-12 17:36 | NURSING ---
pt arrived to unit, vs checked, requesting pain medication while on phone. abd checked, rlq drsg and mid umbilical drsg marked- aware these 2 were changed in pacu as were saturated per vivian REGISTERED PRIVATE DUTY NURSE, other 2 dressings already marked- no increase noted. pt eating jello, explained diet order and denies further needs except to know when or tomorrow is. pt on phone with mom with raised voice about ecigarette, explained to patient policy including ecigarrette, informed of planned surgery time as on schedule. pt denies all further needs. call light within reach.
[2020-09-12] MEDS: oxyCODONE 5 MG Tablet PO ×2 (18:03→22:08)
[2020-09-13] VITALS (9 sets, daily range): BP systolic 106–126; BP diastolic 57–88; PULSE 70–95; RESP 16–18; TEMP 36.7–37.6; O2SAT 97–100
[2020-09-13] MEDS: 0.9% Normal Saline 1,000 ML 125 ML IV ×2 (00:18→08:25)
[2020-09-13] MEDS: 0.9% Saline Lock 10 ML Syringe IV ×5 (00:19→11:57)
[2020-09-13] MEDS: HYDROmorphone 1 MG/ML Syringe IV ×4 (00:19→11:56)
[2020-09-13] MEDS: oxyCODONE 5 MG Tablet PO (04:23)
[2020-09-13 05:51] LABS: Absolute Lymphocyte Count 0.92 X10^3/uL (0.83-4.51); Absolute Neutrophil Count 4.9 X10^3/uL (2.0-7.7); Basophil# 0.01 X10^3/uL; Basophil% 0.2 % (0-1); Hematocrit 34.8 % (37-47); Hemoglobin 11.2 g/dL (12.0-15.0); Lymphocyte # 0.92 X10^3/ul (4.0); Lymphocyte % 14.8 % (19-41); Mean Corp Hgb Conc 32.2 g/dL (32-36); Mean Corpuscular Hgb 26.9 pg (27.0-32.0); Mean Corpuscular Volume 83.7 fL (81-99); Mean Platelet Vol. 10.4 fl (6.2-12.0); Monocyte# 0.41 X10^3/uL; Monocyte% 6.6 % (0-10); NRBC Flagged by Analyzer 0 % (0-5); Neutrophil # 4.85 X10^3/uL (2.7-7.7); Neutrophil % 78.2 % (47-70); Platelet Count 190 K/mm3 (150-450); RBC Distribution Width CV 14.4 % (11.6-14.6); RBC Distribution Width SD 44.2 fl (35.1-43.9); Red Blood Count 4.16 M/mm3 (4.2-5.4); White Blood Count 6.2 K/mm3 (4.4-11.0)
[2020-09-13 06:21] LABS: ALB/GLOB Ratio 1.1 RATIO (0.9-2.4); AST(SGOT) 516 U/L (15-37); Alanine Aminotransfer ALT/SGPT 559 U/L (13-56); Albumin, Serum 3.4 g/dL (3.2-5.0); Alkaline Phosphatase 97 U/L (45-117); Anion Gap 5 (5-15); BUN 4 mg/dL (7-18); BUN/Creat Ratio 5.2 RATIO (10-20); Calcium,Total 8.3 mg/dL (8.5-10.1); Chloride 109 mmol/L (98-107); Creatinine, Serum 0.77 mg/dL (0.55-1.02); EST Glomerular Filtration Rate 94 mL/min (>60); Est Glom Filt Rate - Afr Amer 114 mL/min (>60); Estimated Creatinine Clearance 81.35 ml/min; Globulin 3.1 g/dL (2.2-4.2); Glucose 117 mg/dL (74-106); Potassium 4.1 mmol/L (3.5-5.1); Protein, Total 6.5 g/dL (6.4-8.2); Sodium Level 140 mmol/L (136-145)
--- NOTE | 2020-09-13 07:13 | PN.SURG_ITS ---
Patient Problems: Active and Suspected Problems (Last Updated 09/11/20 @ 10:[address] Michael Cuevas MD) Acute gallstone pancreatitis (Acute) Acute abdominal pain (Acute) Subjective: Patient reports she was doing well and started having worsening pain this morning in the epigastric region radiating to the left upper quadrant. - Physical Exam Vitals/I&O's: Vital Signs Temp Pulse Resp BP Pulse Ox 99.4 F H 70 18 112/74 97 09/13/20 04:15 09/13/20 07:08 09/13/20 04:15 09/13/20 07:08 09/13/20 07:08 Oxygen Delivery Method Room Air Weight: 152 lb Body Mass Index (BMI) 28.7 Intake and Output for Last 24 Hours 09/11/20 09/12/20 09/13/20 23:59 23:59 23:59 Intake Total 2141.03 / 2141.03 4350.33 / 4350.33 1418.75 / 1418.75 Output Total 350 / 350 1999 / 1999 1300 / 1300 Balance 1791.03 / 1791.03 2350.33 / 2350.33 118.75 / 118.75 General: Alert, Oriented x3 Lungs: Normal air movement Abdomen: Soft, Tender - Tender in epigastric region Microbiology Past 72 Hours 09/11/20 07:45 Mucosa - Nose SARS-CoV-2 Antigen (Rapid) - Final Laboratory Results 09/13/20 05:44: WBC 6.2, RBC 4.16 L, Hgb 11.2 L, Hct 34.8 L, MCV 83.7, MCH 26.9 L, MCHC 32.2, RDW Std Deviation 44.2 H, RDW Coeff of Kath 14.4, Plt Count 190, MPV 10.4, Immature Gran % (Auto) 0.200, Neut % (Auto) 78.2 H, Lymph % (Auto) 14.8 L, [place] % (Auto) 6.6, Eos % (Auto) 0.0, Baso % (Auto) 0.2, Absolute Neuts (auto) 4.9, Absolute Lymphs (auto) 0.92, Nucleated RBC % 0 09/13/20 05:44: Sodium 140, Potassium 4.1, Chloride 109 H, Carbon Dioxide 26.0, Anion Gap 5, BUN 4 L, Creatinine 0.77, Estim Creat Clear Calc 81.35, Est GFR (MDRD) Af Amer 114, Est GFR (MDRD) Non-Af 94, BUN/Creatinine Ratio 5.2 L, Glucose 117 H, Calcium 8.3 L, Total Bilirubin 0.60, AST 516 H, ALT 559 H, Alkaline Phosphatase 97, Total Protein 6.5, Albumin 3.4, Globulin 3.1, Albumin/Globulin Ratio 1.1 Current Medications Acetaminophen (Acetaminophen 325 Mg Tablet) 650 mg PO Q4H PRN PRN PRN Reason: Pain 1-10 or Fever Hydromorphone HCl (Hydromorphone 1 Mg/Ml Syringe) 1 mg IV Q2H PRN PRN PRN Reason: Pain Score 4-10 Last Admin: 09/13/20 07:08 Dose: 1 mg Documented by: Sodium Chloride () 1,000 mls @ 125 mls/hr IV .Q8H MARCELLO Last Admin: 09/13/20 00:18 Dose: 125 mls/hr Documented by: Sodium Chloride () 250 mls @ 15 mls/hr IV .[id number] PRN PRN Reason: Saline Flush Ketorolac Tromethamine (Ketorolac 15 Mg/Ml Vial) 15 mg IV Q8H PRN PRN PRN Reason: Pain Score 4-10 Stop: 09/13/20 09:16 Last Admin: 09/12/20 21:34 Dose: 15 mg Documented by: Ondansetron HCl (Ondansetron 4 Mg/2 Ml Vial) 4 mg IV Q6H PRN PRN PRN Reason: NAUSEA Last Admin: 09/12/20 08:57 Dose: 4 mg Documented by: Oxycodone HCl (Oxycodone 5 Mg Tablet) 5 - 10 mg PO Q4H PRN PRN PRN Reason: Pain Score 4-10 Last Admin: 09/13/20 04:23 Dose: 10 mg Documented by: Sodium Chloride (0.9% Saline Lock 10 Ml Syringe) 10 - 40 ml IV UD PRN PRN Reason: SALINE FLUSH Last Admin: 09/13/20 07:08 Dose: 10 ml Documented by: Medical Necessity - Tobacco Use Smoking Status: Current every day smoker Tobacco Use: Cigarettes Assessment/Plan All Active Problems (Last Updated 09/11/20 @ 10:[address] Michael Cuevas MD) Nausea and vomiting in (Acute) Acute gallstone pancreatitis (Acute) Acute abdominal pain (Acute) 30-year-old female with choledocholithiasis and gallstone pancreatitis status post laparoscopic cholecystectomy. 1. Patient was doing well after laparoscopic cholecystectomy until his morning when she started having more severe epigastric pain rating to left upper quadrant. The patient had what looked like choledocholithiasis and retained common duct stones on the cholangiogram yesterday during surgery. I recommended ERCP today. Patient may be having residual pancreatitis due to the stone stuck in the duct and I will order a lipase this morning. Plan for ERCP later today. 2. I discussed ERCP with the patient in detail. I discussed the risks of bleeding, infection, pancreatitis, perforation of the bile duct or bile. Patient understands risks and is well to proceed. I also discussed the possibility stent placement. Michael Cuevas MD Pager: [facility] [address] [place] [address] Office:
[2020-09-13 07:37] LABS: Lipase 87 U/L (73-393)
[2020-09-13] MEDS: Ketorolac 15 MG/ML Vial IV (08:29)
--- NOTE | 2020-09-13 10:36 | NURSING ---
Pt has been resting in bed. Noted she is not using her incentive spirometer. She is encourage and instructed to do so. She states it hurts when she breathes. Noted poor participation in activity. She is also noted to be picking at the edges of her lap site dressing exposing her steri strips.She is educated on not to pick and remove these dressings. Later staff alerts nurse that pt states her IV fell out noted tape is intact and IV did not fall out she had removed it by picking at dressing edges.
--- NOTE | 2020-09-13 16:13 | RAD_ITS ---
CLINICAL HISTORY: Female, 30 years old. Dilated CBD. PROCEDURE: ERCP. FLUOROSCOPY TIME (if supplied): 63.5 seconds TECHNIQUE: An ERCP was performed in the OR. 2 images were provided. COMPARISON: Interoperative cholangiogram, 09/12/2020. FINDINGS: Site demonstrates the endoscope in the duodenum with cannulization of the CBD. There is evidence of contrast within the CBD and central intrahepatic ducts. There is contrast extending from the region of the cystic duct stump downward towards contrast-filled bowel loops. While this may represent a and extravasation more likely represents contrast within the overlying duodenum. There is no evidence of stricture or stenosis of the CBD. On the initial image there appears to be a filling defect near the ampulla and a second image demonstrates residual contrast in the common hepatic and intrahepatic ducts. The distal duct no longer seen. RAD/ERCP Biliary Only IMPRESSION: Fluoroscopic guidance provided during an ERCP. Is referred to the procedural report for further details. Electronically Signed: Chris Miller DO at 16:53 EST Tel [phone], Service support ,
--- NOTE | 2020-09-13 16:29 | OP.CCLET_ITS ---
09/13/2020 No Primary Care Physician Re : ERCP procedure for Amparo Liriano Dear Care Physician This procedure was performed on Sunday, September 13, 2020. My impressions and recommendations are as follows: Impressions : - Choledocholithiasis was found. Complete removal was accomplished by biliary sphincterotomy and balloon extraction. - A biliary sphincterotomy was performed. - The biliary tree was swept. Recommendations : - Return patient to [facility] for [facility] care. - Resume regular diet. My findings are described in the full procedure note, which is enclosed. If I can be of further assistance, please feel free to contact me at Doctor phone number(s): , Work: . Sincerely, Michael Cuevas MD 09/13/2020 4:28:44 PM This report has been signed electronically.
--- NOTE | 2020-09-13 16:29 | OP.ERCP_ITS ---
Patient Name: Amapro Liriano Procedure Date: 09/13/2020 2:21 PM Date of : 1990 Age: 30 Procedure: ERCP Indications: Common bile duct stone(s) Providers: Michael Cuevas MD Medicines: General Anesthesia Patient Profile: This is a 30 year old female. Refer to note in patient chart for documentation of history and physical. Complications: No immediate complications. Procedure: Pre-Anesthesia Assessment: - Prior to the procedure, a History and Physical was performed, and patient medications and allergies were reviewed. The patient's tolerance of previous anesthesia was also reviewed. The risks and benefits of the procedure and the sedation options and risks were discussed with the patient. All questions were answered, and informed consent was obtained. Prior Anticoagulants: The patient has taken no previous anticoagulant or antiplatelet agents. After reviewing the risks and benefits, the patient was deemed in satisfactory condition to undergo the procedure. After obtaining informed consent, the scope was passed under direct vision. Throughout the procedure, the patient's blood pressure, pulse, and oxygen saturations were monitored continuously. The [id number] endoscope was introduced through the mouth, and advanced to the duodenum and used to inject contrast into the bile duct. The ERCP was accomplished without difficulty. The patient tolerated the procedure well. Scope In: 4:14:21 PM Scope Out: 4:19:58 PM Total Procedure Duration Time 0 hours 5 minutes 37 seconds Findings: A 0.035 inch x 260 cm straight Dreamwire was passed into the biliary tree. The sphincterotome was passed over the guidewire and the bile duct was then deeply cannulated. Contrast was injected. The lower third of the main bile duct contained two stones mm. Biliary sphincterotomy was made with a monofilament sphincterotome using ERBE electrocautery. There was no post-sphincterotomy bleeding. The biliary tree was swept with a 15 mm balloon starting at the bifurcation. Two stones were removed. No stones remained. The endoscope was withdrawn from the patient. Impression: - Choledocholithiasis was found. Complete removal was accomplished by biliary sphincterotomy and balloon extraction. - A biliary sphincterotomy was performed. - The biliary tree was swept. Recommendation: - Return patient to [facility] for ongoing care. - Resume regular diet. Procedure Code(s): --- Professional --- 99023, Endoscopic retrograde cholangiopancreatography (ERCP); with removal of calculi/debris from biliary/pancreatic duct(s) 57953, Endoscopic retrograde cholangiopancreatography (ERCP); with sphincterotomy/papillotomy Diagnosis Code(s): --- Professional --- K80.50, Calculus of bile duct without cholangitis or cholecystitis without obstruction CPT copyright 2017 [employer]. All rights reserved. The codes documented in this report are preliminary and upon study director review may be revised to meet current compliance requirements. Michael Cuevas MD 09/13/2020 4:28:44 PM This report has been signed electronically. Number of Addenda: 0 Note Initiated On: 09/13/2020 2:21 PM
--- NOTE | 2020-09-13 18:52 | DCINST_ITS ---
Discharge Diet: Light diet - advance as tolerated Discharge Activity: Return to Normal Activity, May Shower May shower in (days): 1 - with the bandage in place. Lifting Restrictions: 20 lbs for 2 weeks Additional Activity Instructions:: Pain medication may cause nausea. You should typically eat light foods as you take your pain medications. Pain medication may also cause constipation. If this is a problem for you, please discuss with your doctor. Call your doctor if your incision/area has: Continuous Slow Oozing, Sudden Increased Bleeding, Increased Pain/ Swelling, Increased Redness, Foul Smelling Discharge, Fever of 101 or Higher Call your doctor if you observe: Fever of 101 or Higher Suture Line Care: Avoid Pulling/Pushing, Avoid Pinching/Bending Additional Dressing/Incision Instructions:: Leave operative bandaids on for 2 days. When you remove dressing, leave Steri-Strips on until your follow-up appointment, or until the Steri-Strips fall off on their own. Allergies/Adverse Reactions: Allergies No Known Allergies Allergy (Verified 09/11/20 09:20) Medications to take at Discharge Acetaminophen [Tylenol Tablet] 650 mg PO Q4H PRN PRN tablet 09/13/20 Primary Care Physician: Care Physician,No Primary [Primary Care Provider] - Test Results: Test results from this visit will be discussed in further detail at your follow- up appointment, if applicable. Please Follow Up With: Michael Cuevas MD When: Call to make follow up appt as needed [phone]
--- NOTE | 2020-09-13 18:53 | PCM.DC.SUM ---
Discharge Date and Diagnosis - Problem List Patient Problems: Active and Suspected Problems (Last Updated 09/11/20 @ 10:[address] Michael Cuevas MD) Acute gallstone pancreatitis (Acute) Acute abdominal pain (Acute) Date of Admission: 09/11/20 Date of Discharge: 09/13/20 - Primary Discharge Diagnosis Acute Problems: Active Problems (Last Updated 09/11/20 @ 10:[address] Michael Cuevas MD) Acute gallstone pancreatitis (Acute) Acute abdominal pain (Acute) - Secondary Discharge Diagnosis Chronic Problems: Chronic Problems (Last Updated 09/11/20 @ 10:[address] Michael Cuevas MD) GERD (gastroesophageal reflux disease) (Chronic) Kidney stone (Chronic) Depression (Chronic) Hospital Course and Treatment Imaging Results: 09/13/20 16:13 ERCP Biliary Only [RAD] Urgent O.R. Fluoro for C-Arm [RAD] Urgent Clinical Impression(s) from Imaging Studies Abdomen/Pelvis CT 09/11/20 07:41 IMPRESSION: No acute abnormality. No renal or ureteral stone. Cholelithiasis. Electronically Signed: Joshua Valladares MD at 8:53 EST Tel , Service support , Cholangiogram 09/12/20 14:40 IMPRESSION: Mildly dilated common bile duct. Electronically Signed: Magdaleno Rowe MD at 15:54 EST , Service support , ERCP X-Ray 09/13/20 16:13 IMPRESSION: Fluoroscopic guidance provided during an ERCP. Is referred to the procedural report for further details. Electronically Signed: Chris Miller DO at 16:53 EST Tel [phone], Service support , Operations: [email or web address], ERCP Procedures: None Summary of Care Provided: The patient is a 30 year old F presented with abdominal pain and was found to have gallstone pancreatitis. She was admitted and the following day she was taken for laparoscopic cholecystectomy. During intraoperative cholangiogram as she had 2 filling defects in the common duct. The following day she was taken for ERCP and both of these stones were removed. She was feeling well after this procedure and was discharged home in stable condition. Patient Problems: Active and Suspected Problems (Last Updated 09/11/20 @ 10:[address] Michael Cuevas MD) Acute gallstone pancreatitis (Acute) Acute abdominal pain (Acute) - Physical Exam Vitals/I&O's: Vital Signs Temp Pulse Resp BP Pulse Ox 98.1 F 71 18 113/75 98 09/13/20 17:49 09/13/20 17:49 09/13/20 17:49 09/13/20 17:49 09/13/20 17:49 Oxygen Delivery Method Room Air Weight: 152 lb Body Mass Index (BMI) 28.7 Intake and Output for Last 24 Hours 09/11/20 09/12/20 09/13/20 23:59 23:59 23:59 Intake Total 2141.03 / 2141.03 4350.33 / 4350.33 2866.67 / 2866.67 Output Total 350 / 350 1999 / 1999 1330 / 1330 Balance 1791.03 / 1791.03 2350.33 / 2350.33 1536.67 / 1536.67 Microbiology Past 72 Hours 09/11/20 07:45 Mucosa - Nose SARS-CoV-2 Antigen (Rapid) - Final Laboratory Results 09/13/20 05:44: WBC 6.2, RBC 4.16 L, Hgb 11.2 L, Hct 34.8 L, MCV 83.7, MCH 26.9 L, MCHC 32.2, RDW Std Deviation 44.2 H, RDW Coeff of Kath 14.4, Plt Count 190, MPV 10.4, Immature Gran % (Auto) 0.200, Neut % (Auto) 78.2 H, Lymph % (Auto) 14.8 L, [place] % (Auto) 6.6, Eos % (Auto) 0.0, Baso % (Auto) 0.2, Absolute Neuts (auto) 4.9, Absolute Lymphs (auto) 0.92, Nucleated RBC % 0 09/13/20 05:44: Sodium 140, Potassium 4.1, Chloride 109 H, Carbon Dioxide 26.0, Anion Gap 5, BUN 4 L, Creatinine 0.77, Estim Creat Clear Calc 81.35, Est GFR (MDRD) Af Amer 114, Est GFR (MDRD) Non-Af 94, BUN/Creatinine Ratio 5.2 L, Glucose 117 H, Calcium 8.3 L, Total Bilirubin 0.60, AST 516 H, ALT 559 H, Alkaline Phosphatase 97, Total Protein 6.5, Albumin 3.4, Globulin 3.1, Albumin/Globulin Ratio 1.1 09/13/20 05:44: Lipase 87 Current Medications Acetaminophen (Acetaminophen 325 Mg Tablet) 650 mg PO Q4H PRN PRN PRN Reason: Pain 1-10 or Fever Hydromorphone HCl (Hydromorphone 1 Mg/Ml Syringe) 1 mg IV Q2H PRN PRN PRN Reason: Pain Score 4-10 Last Admin: 09/13/20 11:56 Dose: 1 mg Documented by: Sodium Chloride () 250 mls @ 15 mls/hr IV .[id number] PRN PRN Reason: Saline Flush Sodium Chloride () 1,000 mls @ 15 mls/hr IV .Q48H MARCELLO Nicotine (Nicotine 21 Mg Patch) 21 mg TD DAILY MARCELLO Ondansetron HCl (Ondansetron 4 Mg/2 Ml Vial) 4 mg IV Q6H PRN PRN PRN Reason: NAUSEA Last Admin: 09/12/20 08:57 Dose: 4 mg Documented by: Oxycodone HCl (Oxycodone 5 Mg Tablet) 5 - 10 mg PO Q4H PRN PRN PRN Reason: Pain Score 4-10 Last Admin: 09/13/20 04:23 Dose: 10 mg Documented by: Sodium Chloride (0.9% Saline Lock 10 Ml Syringe) 10 - 40 ml IV UD PRN PRN Reason: SALINE FLUSH Last Admin: 09/13/20 11:57 Dose: 10 ml Documented by: Discharge Diet: Light diet - advance as tolerated Discharge Activity: Return to Normal Activity, May Shower May shower in (days): 1 - with the bandage in place. Additional Activity Instructions:: Pain medication may cause nausea. You should typically eat light foods as you take your pain medications. Pain medication may also cause constipation. If this is a problem for you, please discuss with your doctor. Call your doctor if your incision/area has: Continuous Slow Oozing, Sudden Increased Bleeding, Increased Pain/ Swelling, Increased Redness, Foul Smelling Discharge, Fever of 101 or Higher Call your doctor if you observe: Fever of 101 or Higher Suture Line Care: Avoid Pulling/Pushing, Avoid Pinching/Bending Additional Dressing/Incision Instructions:: Leave operative bandaids on for 2 days. When you remove dressing, leave Steri-Strips on until your follow-up appointment, or until the Steri-Strips fall off on their own. Home Medications: Medications to take at Discharge Acetaminophen [Tylenol Tablet] 650 mg PO Q4H PRN PRN tab 09/13/20 Primary Care Physician: Care Physician,No Primary [Primary Care Provider] - Please Follow Up With: Michael Cuevas MD When: Call to make follow up appt as needed [phone] Medical Necessity - Tobacco Use Smoking Status: Current every day smoker Tobacco Use: Cigarettes Meaningful Use Info Meaningful Use Diagnoses (Choose all that apply): None applicable
== END 2020-09-13 19:07 | disposition home or self-care (01) ==
LOC: ED 08:54 → MS3 09:35
PROVIDERS: Anesthesiology; Admitting Provider Surgery; Emergency Provider Emergency Medicine; Visit Provider Surgery
PROC: (CPT 47610; principal; 2020-09-12 14:40)
DX: K85.10 Biliary acute pancreatitis without necrosis or infection (principal); K80.64 Calculus of gallbladder and bile duct with chronic cholecystitis without obstruction; K21.9 Gastro-esophageal reflux disease without esophagitis; R19.7 Diarrhea, unspecified; F17.210 Nicotine dependence, cigarettes, uncomplicated; Z86.19 Personal history of other infectious and parasitic diseases
CPT/HCPCS: 00790; 43262; 43264; 47563; 36415; 74176; 74300; 74328; 76000; 80048; 80053; 80076; 80307; 81001; 83690; 84703; 85025; 87426; 88304; 93005; 96361; 96374; 96375; 96376; 99218; 99251; 99285; 99406; J7030; J7120; A4216; G0378; G0463; J1610; J2405